=== PATIENT | female | born 1990 | race Caucasian/White ===

== ENCOUNTER 2018-03-26 13:51 | Inpatient (IN) | payer OTHER ==
[~2018-03-26] VITALS: Ht 160 cm; Wt 77.5 kg
--- NOTE | ~2018-03-26 | EKG ---
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
--- NOTE | ~2018-03-26 | HC ---
[facility] [place] [address] CONSULTATION Name: FLAKITA SMITH Huma Room #: 213-P ADM IN M.R.#: [id number] Admission: 03/26/18 Attend Phys: Westley Winter MD Discharge: Date of : 86 Report #: [id number] THIS REPORT FOR: //name// CC: MARRY physician/PCP Westley Winter DATE OF SERVICE: 03/26/2018 HISTORY OF PRESENT ILLNESS: This is a 27-year-old female patient who was evaluated by me multiple times today for stroke protocol. This patient was getting blood drawn and presented with pretty unusual symptoms. She indicates her speech was hesitant. She was having some shakiness. She was having some visual disturbances. Then she gave some history that some of the shakiness has started since yesterday. In fact, she has not been feeling well since yesterday. She has a history of anxiety. She also has a history of migraine. She indicates that she gets these migraine headache daily. Many times in the past, they have been associated with neurological deficit. The last time it was about 1 year ago. She did not seek any medical attention and she became better. She also indicates she was diagnosed with pituitary adenoma at one time. She is being followed by somebody at [facility]. She was given some Ativan and her symptom has improved and symptom was improving even before that. REVIEW OF SYSTEMS: She indicates she has a history of pretty significant anxiety. She also says she got daily migraine headache. A 14-point review of system was carried out and it was positive as described above. PAST MEDICAL HISTORY: Positive for neurological symptoms secondary to migraine which became better. FAMILY HISTORY: Negative for early age strokes. SOCIAL HISTORY: She drinks alcohol occasionally, but not on a regular basis. She just finished her periods. PHYSICAL EXAMINATION: Her examination was carried out multiple times. All of it are very non-anatomical evaluation. She has a hesitant speech, but when she started talking she is able to talk reasonably well especially when she is distracted. Cranial nerve examination when I carried out most of the time she can count the fingers okay, but sometime she will say four instead of five fingers. She said she cannot feel the position sense at all in the right arm or the left am, but on other occasion she switches arms. On the legs, she is able to feel better. Her reflexes are symmetrical. I cannot tell about the plantar. She does cerebellar signs okay, but slowly. This examination is very unusual. Her blood pressure is 131/75, respirations 14 and pulse is 78. LABORATORY DATA: Indicated normal white count. Her test is negative. [address] [address] CONSULTATION Name: FLAKITA SMITH Huma Room #: 213-P [facility] IN M.R.#: [id number] Admission: 03/26/18 Attend Phys: Westley Winter MD Discharge: Date of : 86 Report #: [id number] She had a CT scan of the head and I asked the Emergency Room PA to get a CT angio of the head and neck if is excluded and they did that. I reviewed that with the radiologist and that exam is normal. I had multiple discussions with the patient. I discussed with her that so far, there is no definite evidence for CVA. Problem we face is that these tests can miss the stroke and by the time we do more definite testing, it is too late to give TPA. The other problem is that she has very fluctuating exam, which does not follow any anatomical pattern, she has no reactive hypertension, she has migraine headache with focal neurological deficits in the past, she has pretty significant anxiety in the baseline. All of it makes it very difficult to make a decision. I gave her the option of going on TPA or not going on TPA. I gave her the option of TPA or no TPA and I discussed indication, potential complication and alternatives of giving the TPA or not giving the TPA. That was discussed with the patient multiple times. She decided that she does not want TPA and she will take her chances that way. We will follow that approach and we will get an MRI of the brain done stat in this patient. I am not sure about the etiology of the patient's symptoms. I considered the possibility of basilar artery thrombosis, but there is no evidence for that. CT perfusion and angiogram has its limitation, but this patient has no reactive hypertension and her symptoms does not fit into any anatomical location because it keeps variable and is very unusual to lose complete position sense in the arm without losing it in the leg and then being so variable exam. However, the stroke cannot be fully excluded. There are problems with falling either approach of giving TPA or not giving TPA. That has been fully discussed with the patient and she has been given both options whether to proceed with TPA or not. She has decided not to proceed with TPA. I still think she should be admitted and we will get an MRI done and until that shows anything we will just mainly observe her. Thank you very much for this referral. More than 70 minutes of time was spent taking care of this patient today and majority of that time was spent counseling the patient on TPA versus no TPA and her options and all the testing we did and coordinating her care by talking to other health daycare provider including Emergency Room physician PA, radiologist and Dr. Winter. By: [id number] [id number] MD carina Hilton
--- NOTE | ~2018-03-26 | 2DMMODE ---
[facility] [address] [place] [address] 2 D/M-MODE ECHOCARDIOGRAM Name: FLAKITA SMITH Room #: 213-P [facility] IN ..#: [id number] Admission: 03/26/18 Attend Phys: Westley Winter, Discharge: Date of : 86 Date of Service: 03/27/18 0906 Report #: [id number] THIS REPORT FOR: //name// APPROVED REPORT Study performed: 03/27/2018 07:53:26 EXAM: Comprehensive 2D, Doppler, and color-flow Echocardiogram Patient Location: Bedside Room #: 213 Status: routine BSA: 1.72 HR: 64 bpm BP: 95/54 mmHg Rhythm: NSR Other Information Study Quality: Adequate Indications Migraine Echo Enhancing Agent Indication: Rule out Shunt Agent(s) / Amount(s) Used: Agitated Saline 6 cc 2D Dimensions RVDd: 27.63 mm LVEF(%): 62.00 (>50%) IVSd: 7.94 (7-11mm) LVOT Diam: 19.22 (18-24mm) LVDd: 46.17 mm PWd: 8.69 (7-11mm) Ascending Ao: 24.30 (22-36mm) LVDs: 30.79 (25-40mm) Aortic Root: 26.42 mm Rodas's LVEF: 62.00 % Volumes Left Atrial Volume (Systole) Single Plane 4CH: 23.66 mL Single Plane 2CH: 27.91 mL LA ESV Index: 18.00 mL/m2 Aortic Valve AoV Peak Duke.: 0.96 m/s AO Peak Gr.: 3.70 mmHg LVOT Max P.87 mmHg LVOT Max V: 0.68 m/s RICKY Vmax: 2.06 cm2 [facility] [place] [address] 2 D/M-MODE ECHOCARDIOGRAM Name: FLAKITA SMITH Room #: 213-P [facility] IN .R.#: [id number] Admission: 03/26/18 Attend Phys: Westley Winter, Discharge: Date of : 86 Date of Service: 03/27/18 0906 Report #: [id number] Mitral Valve E/A Ratio: 1.8 MV Decel. Time: 203.30 ms MV E Max Duke.: 0.70 m/s MV A Duke.: 0.38 m/s MV PHT: 58.96 ms IVRT: 69.20 ms Pulmonary Valve PV Peak Dkue.: 0.73 m/s PV Peak Gr.: 2.13 mmHg Pulmonary Vein P Vein S: 0.53 m/s P Vein A: 0.27 m/s P Vein D: 0.59 m/s P Vein A Dur.: 143.0 msec P Vein S/D Ratio: 0.90 Tricuspid Valve TR Peak Duke.: 1.71 m/s RAP Estimate: 5.00 mmHg TR Peak Gr.: 12.00 mmHg PA Pressure: 17.00 mmHg Left Ventricle The left ventricle is normal size. There is normal LV segmental wall motion. There is normal left ventricular wall thickness. Left ventricular systolic function is normal. LVEF is 55%. The left ventricular diastolic function is normal. Right Ventricle The right ventricle is normal size. The right ventricular systolic function is normal. Atria The left atrium size is normal. No shunting noted with contrast bubble injection. The right atrium size is normal. Aortic Valve The aortic valve is normal in structure. No aortic regurgitation is present. There is no aortic valvular stenosis. Mitral Valve The mitral valve is normal in structure. No mitral regurgitation. Tricuspid Valve The tricuspid valve is normal in structure. Trace tricuspid [facility] [address] [place] [address] 2 D/M-MODE ECHOCARDIOGRAM Name: FLAKITA SMITH Room #: 213-P [facility] IN .R.#: [id number] Admission: 03/26/18 Attend Phys: Westley Winter, Discharge: Date of : 86 Date of Service: 03/27/18 0906 Report #: [id number] regurgitation. Right ventricular systolic pressure is normal. Pulmonic Valve The pulmonary valve is normal in structure. Trace pulmonic regurgitation. Great Vessels The aortic root is normal in size. The ascending aorta is normal in size. IVC is normal in size and collapses >50% with inspiration. Pericardium There is no pericardial effusion. <Conclusion> Left ventricular systolic function is normal. There is normal LV segmental wall motion. LVEF is 55%. Normal diastolic function No shunting noted with contrast bubble injection. The aortic valve is normal in structure. No aortic regurgitation or stenosis The mitral valve is normal in structure. No mitral regurgitation. Pulmonary artery pressure could not be reliably ascertained There is no pericardial effusion. <ELECTRONICALLY SIGNED> By: Floyd Fisher MD, FACC 03/27/18905 5 5 Floyd Fisher MD, FACC /INF
--- NOTE | ~2018-03-26 | EEG ---
[facility] [place] [place] [address] ELECTROENCEPHALOGRAM Name: FLAKITA SMITH Room #: 213-P [facility] IN M.R.#: [id number] Admission: 03/26/18 Attend Phys: Westley Winter MD Discharge: Date of : 86 Report #: [id number] THIS REPORT FOR: //name// CC: MARRY physician/PCP Westley Winter DATE OF SERVICE: 03/26/2018 This patient is being evaluated for shakiness and multiple unusual symptoms for which no cause is found. Background activity in this patient's EEG is about 11 Hz and 40 microvolt. This is a symmetrical activity. This patient became drowsy that is associated with bilateral slowing. Photic stimulation was unremarkable. Throughout the record, no active epileptiform activity was noticed. IMPRESSION: This patient's EEG is within normal limits. Thank you very much for this referral. By: 0725 0740 Chuy Meeks MD /julia
--- NOTE | ~2018-03-26 | PATH ---
[facility] [address] [place] [address] PATHOLOGY RPT PROCEDURE Name: FLAKITA SMITH Room #: 213-P [facility] IN ..#: [id number] Admission: 03/26/18 Date of : 86 Discharge: 03/31/18 Report #: [id number] Path Case #: [id number] Note [facility] Accession Number: [id number] TESTS RESULT FLAG UNITS REF RANGE LAB Clinician Provided Cytology Information No. of containers..01 Other (Miscellaneous) Source: CSF DIAGNOSIS: 02 CSF NEGATIVE FOR MALIGNANT CELLS. SCANT CELLULARITY. SCATTERED LYMPHOCYTES PRESENT. NO VIRAL INCLUSIONS IDENTIFIED. Signed out by: 02 Vickie You MD, Pathologist NPI- [id number] Performed by: Lee Shi, Infrastructure Technician ([facility]) Gross description: 01 2ML, COLORLESS, CLEAR /LCS FLAG LEGEND: L-Low Normal,H-High Normal,LL-Alert Low,HH-Alert High <-Panic Low,>-Panic High,A-Abnormal,AA-Critical Abnormal Performed at: [address] [place] [address] Vu Bruce MD, [address] [address] Vickie You MD, Performed at: [address], [place], [place] [id number] MD Vu Bruce MD Phone: [phone]
[2018-03-26 13:52] VITALS: BP 135/83
[2018-03-26 14:11] LABS: ABSOLUTE NEUTROPHILS 6.6 thou/uL (1.4-8.2); BASOPHILS 0.6 % (0.0-2.0); EOSINOPHILS 0.6 % (0.0-3.0); HEMATOCRIT 41.5 % (37.0-47.0); HEMOGLOBIN 14.1 gm/dL (12.0-15.0); LYMPHOCYTES 25.1 % (24.0-44.0); MCH 30.1 pg (26.0-34.0); MCV 88.6 fL (80.0-100.0); MONOCYTES 5.3 % (1.0-8.0); PLATELET COUNT 348 thou/uL (150-400); POLYS 68.4 % (36.0-66.0); RBC 4.68 mil/uL (4.20-5.00); RDW 12.3 % (10.5-14.5); WBC 9.6 thou/uL (4.0-11.0)
[2018-03-26 14:13] LABS: POC CA IONIZED 4.7 mg/dL (4.5-5.3); POC CREATININE 0.9 mg/dL (0.6-1.3); POC HEMOGLOBIN 13.9 g/dL (12.0-15.0)
[2018-03-26 14:18] LABS: ANION GAP 10 mmol/L (7-16); BUN 9 mg/dL (7-18); CALCIUM 9.2 mg/dL (8.5-10.1); CHLORIDE 102 mmol/L (98-107); CO2 26 mmol/L (21-32); GLUCOSE 116 mg/dL (74-106); POTASSIUM 3.4 mmol/L (3.5-5.1); SODIUM 138 mmol/L (136-145)
[2018-03-26 14:27] LABS: ALBUMIN 4.3 g/dL (3.4-5.0); SGOT 18 U/L (15-37); SGPT 29 U/L (30-65); TOTAL BILIRUBIN 0.3 mg/dL (<0.1-1.0); TOTAL PROTEIN 7.9 g/dL (6.4-8.2); TROPONIN-I < 0.04 ng/mL (<0.06)
[2018-03-26 14:30] LABS: INR 1.1; PROTIME 10.6 Seconds (9.3-11.4)
[2018-03-26 16:20] LABS: URINE BILIRUBIN NEGATIVE (Negative); URINE BLOOD 2+ (Negative); URINE CLARITY CLEAR; URINE COLOR YELLOW; URINE GLUCOSE-RANDOM* NEGATIVE (Negative); URINE KETONES NEGATIVE (Negative); URINE LEUKOCYTES-REFLEX NEGATIVE (Negative); URINE NITRITE-REFLEX NEGATIVE (Negative); URINE PROTEIN (DIPSTICK) NEGATIVE (Negative); URINE SPECIFIC GRAVITY <= 1.005 (1.005-1.035); URINE UROBILINOGEN 0.2 E.U./dl (0.2-1.0)
[2018-03-26 16:31] LABS: BACTERIA-REFLEX None Seen /HPF (None Seen); CASTS None Seen /LPF (None Seen); CRYSTALS None Seen /LPF (None Seen); SQUAMOUS 0-3 Few /LPF (0-3); URINE RBC 0-2 Rare /HPF (0-2); URINE WBC-REFLEX 0-5 Rare /HPF (0-5)
[2018-03-26 17:00] VITALS: BP 137/85
[2018-03-26] MEDS ORDERED: AMBIEN 5 MG TABL5 M1 PO (17:07)
[2018-03-26] MEDS ORDERED: ATIVAN1 MG PO (17:07)
[2018-03-26] MEDS ORDERED: TRAZODONE HCL100 MG PO (17:08)
[2018-03-26] MEDS ORDERED: PROZAC20 MG PO (17:09)
[2018-03-26 17:21] LABS: ALBUMIN 4.2 g/dL (3.4-5.0)
[2018-03-26 17:47] LABS: TSH 2.471 uIU/mL (0.358-3.740)
[2018-03-26 17:50] VITALS: BP 114/81
[2018-03-26 18:43] VITALS: BP 137/85
[2018-03-27] VITALS (9 sets, daily range): BP systolic 77–114; BP diastolic 35–60
[2018-03-27 03:19] LABS: HEMATOCRIT 36.7 % (37.0-47.0); HEMOGLOBIN 12.2 gm/dL (12.0-15.0); MCH 29.7 pg (26.0-34.0); MCHC 33.2 g/dL (28.0-37.0); MCV 89.4 fL (80.0-100.0); RBC 4.11 mil/uL (4.20-5.00); RDW 12.6 % (10.5-14.5); WBC 8.4 thou/uL (4.0-11.0)
[2018-03-27 03:31] LABS: CALCIUM 8.5 mg/dL (8.5-10.1); CREATININE 0.7 mg/dL (0.6-1.0); MAGNESIUM 2.2 mg/dL (1.8-2.4); POTASSIUM 3.9 mmol/L (3.5-5.1)
[2018-03-27 09:28] LABS: CHOLESTEROL 162 mg/dL (<200); HDL CHOLESTEROL 56 mg/dL (>40); LDL CHOLESTEROL 88 mg/dL (<100); TC:HDL 2.9 Ratio (Not establshd); TRIGLYCERIDE 93 mg/dL (<150); VLDL 19 mg/dL (<40)
[2018-03-28 04:18] LABS: HEMOGLOBIN 12.9 gm/dL (12.0-15.0); MCH 29.8 pg (26.0-34.0); MCHC 33.2 g/dL (28.0-37.0); MCV 89.9 fL (80.0-100.0); RBC 4.34 mil/uL (4.20-5.00); RDW 12.3 % (10.5-14.5); WBC 7.5 thou/uL (4.0-11.0)
[2018-03-28 04:29] LABS: CALCIUM 8.7 mg/dL (8.5-10.1); CREATININE 0.7 mg/dL (0.6-1.0)
[2018-03-28 04:45] VITALS: BP 105/60
[2018-03-28 07:25] VITALS: BP 111/63
[2018-03-28 11:40] VITALS: BP 114/66
[2018-03-28 16:05] VITALS: BP 114/66
[2018-03-28 16:30] VITALS: BP 114/66
[2018-03-28 20:00] VITALS: BP 122/68
[2018-03-29 04:02] LABS: HEMATOCRIT 40.7 % (37.0-47.0); HEMOGLOBIN 13.5 gm/dL (12.0-15.0); MCH 29.6 pg (26.0-34.0); MCHC 33.3 g/dL (28.0-37.0); RBC 4.57 mil/uL (4.20-5.00); RDW 12.1 % (10.5-14.5); WBC 11.1 thou/uL (4.0-11.0)
[2018-03-29 04:13] LABS: CALCIUM 9.3 mg/dL (8.5-10.1); CREATININE 0.6 mg/dL (0.6-1.0); MAGNESIUM 1.9 mg/dL (1.8-2.4); POTASSIUM 3.9 mmol/L (3.5-5.1)
[2018-03-29 04:30] VITALS: BP 105/63
[2018-03-29 08:00] VITALS: BP 110/74
[2018-03-29 12:00] VITALS: BP 98/61
[2018-03-29 20:00] VITALS: BP 111/74
[2018-03-30 00:38] VITALS: BP 113/64
[2018-03-30 04:14] LABS: HEMATOCRIT 39.7 % (37.0-47.0); HEMOGLOBIN 13.4 gm/dL (12.0-15.0); MCHC 33.6 g/dL (28.0-37.0); MCV 89.3 fL (80.0-100.0); RBC 4.45 mil/uL (4.20-5.00); RDW 12.4 % (10.5-14.5); WBC 10.1 thou/uL (4.0-11.0)
[2018-03-30 04:18] LABS: CALCIUM 8.6 mg/dL (8.5-10.1); CREATININE 0.7 mg/dL (0.6-1.0); MAGNESIUM 2.1 mg/dL (1.8-2.4); POTASSIUM 4.1 mmol/L (3.5-5.1)
[2018-03-30 08:00] VITALS: BP 110/69
[2018-03-30 12:00] VITALS: BP 98/63
[2018-03-30 16:00] VITALS: BP 95/55
[2018-03-30 19:58] VITALS: BP 102/42
[2018-03-30 20:43] VITALS: BP 92/47
[2018-03-31 04:57] VITALS: BP 109/65
[2018-03-31 07:32] VITALS: BP 121/75
[2018-03-31 10:30] VITALS: BP 114/66
[2018-03-31 11:20] LABS: INR 1.1; PROTIME 10.8 Seconds (9.3-11.4)
[2018-03-31 12:48] VITALS: BP 108/66
[2018-03-31 13:11] LABS: CSF GLUCOSE 55 mg/dL (40-70); CSF PROTEIN 41 mg/dL (15-45)
[2018-03-31 13:18] LABS: CSF CLARITY CLEAR; CSF COLOR COLORLESS; VOLUME 12 ml
[2018-03-31 13:25] LABS: CSF RBC 0 /mm3
[2018-03-31 13:26] LABS: CSF WBC 1 /mm3 (0-10)
[2018-03-31 14:59] VITALS: BP 114/66
[2018-03-31 16:00] VITALS: BP 114/66
[2018-03-31] MEDS ORDERED: CYCLOBENZAPRINE5 MG PO (16:47)
[2018-03-31 19:06] LABS: SERUM ALBUMIN 3.9 g/dL (3.5-5.5)
[2018-04-02 14:12] LABS: CSF IgG 1.7 mg/dL (0.0-8.6)
== END 2018-03-31 16:00 | disposition home or self-care (01) | DRG 57 ==
LOC: ER 13:51 → EROBS 16:43 → 2N 16:43 → ENTRNSPT 03-31 17:46
PROVIDERS: Internal Medicine; Physician Assistant; Psychiatry & Neurology Neurology; Psychiatry & Neurology Neuromuscular Medicine
PROC: 009U3ZX Drainage of Spinal Canal, Percutaneous Approach, Diagnostic (ICD-10-PCS; principal; 2018-03-31)
PROC: B01B1ZZ Fluoroscopy of Spinal Cord using Low Osmolar Contrast (ICD-10-PCS; principal; 2018-03-31)
DX: G81.91 Hemiplegia, unspecified affecting right dominant side (principal); G43.409 Hemiplegic migraine, not intractable, without status migrainosus; F41.9 Anxiety disorder, unspecified; F32.9 Major depressive disorder, single episode, unspecified; F43.10 Post-traumatic stress disorder, unspecified; R26.9 Unspecified abnormalities of gait and mobility; Z79.899 Other long term (current) drug therapy; Z88.0 Allergy status to penicillin; Z88.8 Allergy status to other drugs, medicaments and biological substances
CPT/HCPCS: 10081

== ENCOUNTER 2019-01-18 21:20 | Emergency (ER) | payer OTHER ==
[~2019-01-18] VITALS: Ht 154.9 cm; Wt 60.8 kg
[~2019-01-18 21:20] MED LIST: AMBIEN 5 MG TABL5 M1 PO; ATIVAN1 MG PO; CYCLOBENZAPRINE5 MG PO; PROZAC20 MG PO; TRAZODONE HCL100 MG PO
[2019-01-18] MEDS ORDERED: FAMOTIDINE 20 M20 MG PO (23:39)
[2019-01-19 00:06] VITALS: BP 113/69
== END 2019-01-18 23:55 | disposition home or self-care (01) ==
LOC: ER 21:20
DX: L50.9 Urticaria, unspecified (principal); T78.40XA Allergy, unspecified, initial encounter; F41.0 Panic disorder [episodic paroxysmal anxiety]; F32.9 Major depressive disorder, single episode, unspecified; F17.210 Nicotine dependence, cigarettes, uncomplicated; Z88.5 Allergy status to narcotic agent; Z88.0 Allergy status to penicillin; Z88.1 Allergy status to other antibiotic agents; X58.XXXA Exposure to other specified factors, initial encounter

== ENCOUNTER 2019-03-18 18:00 | Emergency (ER) | payer OTHER ==
[~2019-03-18] VITALS: Ht 157.5 cm; Wt 61.2 kg
[~2019-03-18 18:00] MED LIST changes: +FAMOTIDINE 20 M20 MG PO
[2019-03-18] MEDS ORDERED: PREDNISONE 20 M20 MG PO (18:45)
[2019-03-18] MEDS ORDERED: HYDROXYZINE HCL25 M2 PO (18:45)
[2019-03-18 19:05] VITALS: BP 119/77
== END 2019-03-18 19:05 | disposition home or self-care (01) ==
LOC: ER 18:00
DX: R21 Rash and other nonspecific skin eruption (principal); F41.9 Anxiety disorder, unspecified; F32.9 Major depressive disorder, single episode, unspecified; G43.909 Migraine, unspecified, not intractable, without status migrainosus; Z88.0 Allergy status to penicillin; Z88.5 Allergy status to narcotic agent

== ENCOUNTER 2019-05-03 11:19 | Emergency (ER) | payer OTHER ==
[~2019-05-03] VITALS: Ht 154.9 cm; Wt 54.4 kg
[~2019-05-03 11:19] MED LIST changes: +HYDROXYZINE HCL25 M2 PO; +PREDNISONE 20 M20 MG PO
[2019-05-03 11:50] LABS: ABSOLUTE NEUTROPHILS 4.1 thou/uL (1.4-8.2); BASOPHILS 0.6 % (0.0-2.0); EOSINOPHILS 1.1 % (0.0-3.0); HEMOGLOBIN 14.9 gm/dL (12.0-15.0); LYMPHOCYTES 31.6 % (24.0-44.0); MCH 30.3 pg (26.0-34.0); MCHC 33.8 g/dL (28.0-37.0); MCV 89.6 fL (80.0-100.0); MONOCYTES 6.8 % (1.0-8.0); PLATELET COUNT 342 thou/uL (150-400); POLYS 59.9 % (36.0-66.0); RDW 12.7 % (10.5-14.5); WBC 6.8 thou/uL (4.0-11.0)
[2019-05-03 11:57] LABS: CALCIUM 9.2 mg/dL (8.5-10.1); CREATININE 0.9 mg/dL (0.6-1.0); POTASSIUM 3.6 mmol/L (3.5-5.1)
[2019-05-03 12:03] LABS: TOTAL BILIRUBIN 0.6 mg/dL (<0.1-1.0); TOTAL PROTEIN 7.6 g/dL (6.4-8.2)
[2019-05-03 12:49] VITALS: BP 118/73
[2019-05-03 13:02] LABS: URINE BILIRUBIN NEGATIVE (Negative); URINE BLOOD NEGATIVE (Negative); URINE CLARITY SL CLOUDY; URINE COLOR YELLOW; URINE GLUCOSE-RANDOM* NEGATIVE (Negative); URINE KETONES NEGATIVE (Negative); URINE NITRITE-REFLEX NEGATIVE (Negative); URINE PROTEIN (DIPSTICK) NEGATIVE (Negative); URINE SPECIFIC GRAVITY 1.025 (1.005-1.035); URINE UROBILINOGEN 0.2 E.U./dl (0.2-1.0)
[2019-05-03 13:03] LABS: URINE LEUKOCYTES-REFLEX 2+ (Negative)
[2019-05-03 13:17] LABS: CASTS None Seen /LPF (None Seen); CRYSTALS None Seen /LPF (None Seen); SQUAMOUS >10 Many /LPF (0-3)
[2019-05-03 13:18] LABS: BACTERIA-REFLEX 1-9 Few /HPF (None Seen); CALCIUM OXALATE 0-3 Few /LPF (None Seen); MUCUS 0-3 Light strn/LPF (None Seen); URINE RBC 0-2 Rare /HPF (0-2); URINE WBC-REFLEX >25 Many /HPF (0-5)
--- NOTE | 2019-05-03 19:54 | EKG ---
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1990 Requested By: Abdirahman Palomino Order Number: [id number] MD: Silvino Pollack Measurements Intervals [place] Rate: 67 P: 0 MO: 174 QRS: 2 QRSD: 95 T: 1 QT: 423 QTc: 447 Interpretive Statements Sinus rhythm Inferior infarct, old Compared to ECG 03/26/2018 14:19:34 Myocardial infarct finding now present Electronically Signed On 05-03-2019 19:54:44 CDT by Silvino Pollack [email or web address] ��������������������������������������������� <ELECTRONICALLY SIGNED> ���������������������������������������� By: Silvino Pollack MD ��������������������������������������������� 05/03/19 1956 D: 07/1138 113 Silvino Pollack MD /KAYLI
== END 2019-05-03 13:35 | disposition home or self-care (01) ==
LOC: ER 11:19
PROVIDERS: Emergency Medicine
DX: R42 Dizziness and giddiness (principal); F41.9 Anxiety disorder, unspecified; F32.9 Major depressive disorder, single episode, unspecified; Z88.0 Allergy status to penicillin; Z88.5 Allergy status to narcotic agent; Z88.8 Allergy status to other drugs, medicaments and biological substances

== ENCOUNTER 2019-06-19 01:24 | Emergency (ER) | payer OTHER ==
[~2019-06-19] VITALS: Ht 157.5 cm; Wt 59.0 kg
[2019-06-19 02:10] LABS: URINE BILIRUBIN NEGATIVE (Negative); URINE BLOOD 2+ (Negative); URINE CLARITY SL CLOUDY; URINE COLOR YELLOW; URINE GLUCOSE-RANDOM* NEGATIVE (Negative); URINE KETONES 2+ (Negative); URINE LEUKOCYTES-REFLEX TRACE (Negative); URINE NITRITE-REFLEX NEGATIVE (Negative); URINE PROTEIN (DIPSTICK) NEGATIVE (Negative); URINE SPECIFIC GRAVITY 1.025 (1.005-1.035); URINE UROBILINOGEN 0.2 E.U./dl (0.2-1.0)
[2019-06-19 02:45] LABS: BACTERIA-REFLEX 1-9 Few /HPF (None Seen); CASTS None Seen /LPF (None Seen); CRYSTALS None Seen /LPF (None Seen); MUCUS 0-3 Light strn/LPF (None Seen); SQUAMOUS 0-3 Few /LPF (0-3); URINE RBC 3-10 Few /HPF (0-2); URINE WBC-REFLEX 6-15 Few /HPF (0-5); WBC CLUMPS Occasional (None Seen)
[2019-06-19 03:16] LABS: ABSOLUTE NEUTROPHILS 11.6 thou/uL (1.4-8.2); BASOPHILS 0.3 % (0.0-2.0); EOSINOPHILS 0.2 % (0.0-3.0); HEMATOCRIT 41.6 % (37.0-47.0); HEMOGLOBIN 13.7 gm/dL (12.0-15.0); LYMPHOCYTES 9.6 % (24.0-44.0); MCH 29.6 pg (26.0-34.0); MCHC 32.9 g/dL (28.0-37.0); MCV 89.8 fL (80.0-100.0); MONOCYTES 3.9 % (1.0-8.0); PLATELET COUNT 286 thou/uL (150-400); RBC 4.63 mil/uL (4.20-5.00); RDW 12.5 % (10.5-14.5); WBC 13.4 thou/uL (4.0-11.0)
[2019-06-19 03:17] LABS: ANION GAP 8 mmol/L (7-16); BUN 8 mg/dL (7-18); CALCIUM 8.9 mg/dL (8.5-10.1); CHLORIDE 102 mmol/L (98-107); CO2 27 mmol/L (21-32); CREATININE 0.9 mg/dL (0.6-1.0); GLUCOSE 114 mg/dL (74-106); POTASSIUM 3.8 mmol/L (3.5-5.1); SODIUM 137 mmol/L (136-145)
[2019-06-19 03:23] LABS: ALBUMIN 3.7 g/dL (3.4-5.0); DIRECT BILIRUBIN < 0.1 mg/dL (<0.1-0.3); LIPASE 140 U/L (73-393); SGOT 20 U/L (15-37); SGPT 22 U/L (30-65); TOTAL BILIRUBIN 0.4 mg/dL (<0.1-1.0); TOTAL PROTEIN 7.2 g/dL (6.4-8.2)
[2019-06-19] MEDS ORDERED: ZOFRAN ODT4 MG PO (04:18)
[2019-06-19] MEDS ORDERED: MACROBID 100 M100 M1 PO (04:31)
[2019-06-19 04:45] VITALS: BP 146/93
== END 2019-06-19 04:40 | disposition home or self-care (01) ==
LOC: ER 01:24
PROVIDERS: Emergency Medicine
DX: G43.409 Hemiplegic migraine, not intractable, without status migrainosus (principal); J02.9 Acute pharyngitis, unspecified; N39.0 Urinary tract infection, site not specified; R11.2 Nausea with vomiting, unspecified; F41.0 Panic disorder [episodic paroxysmal anxiety]; F32.9 Major depressive disorder, single episode, unspecified; Z88.8 Allergy status to other drugs, medicaments and biological substances; Z88.1 Allergy status to other antibiotic agents; Z88.0 Allergy status to penicillin; Z86.73 Personal history of transient ischemic attack (TIA), and cerebral infarction without residual deficits

== ENCOUNTER 2021-08-18 23:15 | Emergency (ER) | payer BC ==
[~2021-08-18] VITALS: Ht 160 cm; Wt 63.5 kg
[~2021-08-18 23:15] MED LIST changes: +MACROBID 100 M100 M1 PO; +ZOFRAN ODT4 MG PO
[2021-08-19 00:13] LABS: URINE BILIRUBIN NEGATIVE (Negative); URINE BLOOD NEGATIVE (Negative); URINE CLARITY CLEAR; URINE COLOR YELLOW; URINE GLUCOSE-RANDOM* NEGATIVE (Negative); URINE KETONES NEGATIVE (Negative); URINE LEUKOCYTES-REFLEX TRACE (Negative); URINE NITRITE-REFLEX NEGATIVE (Negative); URINE PROTEIN (DIPSTICK) NEGATIVE (Negative); URINE SPECIFIC GRAVITY <= 1.005 (1.005-1.035); URINE UROBILINOGEN 0.2 E.U./dl (0.2-1.0)
[2021-08-19 00:36] LABS: ABSOLUTE NEUTROPHILS 5.1 thou/uL (1.4-8.2); BASOPHILS 0.7 % (0.0-2.0); HEMATOCRIT 37.3 % (37.0-47.0); LYMPHOCYTES 36.3 % (24.0-44.0); MCH 27.2 pg (26.0-34.0); MCHC 32.2 g/dL (28.0-37.0); MCV 84.4 fL (80.0-100.0); MONOCYTES 7.2 % (1.0-8.0); PLATELET COUNT 347 thou/uL (150-400); POLYS 53.8 % (36.0-66.0); RBC 4.42 mil/uL (4.20-5.00); RDW 14.6 % (10.5-14.5); WBC 9.5 thou/uL (4.0-11.0)
[2021-08-19 00:43] LABS: CALCIUM 9.2 mg/dL (8.5-10.1); CREATININE 0.9 mg/dL (0.6-1.0); POTASSIUM 3.6 mmol/L (3.5-5.1)
[2021-08-19 00:50] LABS: ALBUMIN 3.5 g/dL (3.4-5.0); TOTAL BILIRUBIN 0.1 mg/dL (0.2-1.0); TOTAL PROTEIN 7.1 g/dL (6.4-8.2)
[2021-08-19] MEDS ORDERED: IBUPROFEN 600600 M1 PO (02:11)
[2021-08-19] MEDS ORDERED: ZOFRAN ODT4 MG PO (02:11)
[2021-08-19] MEDS ORDERED: PERCOCET PO (02:11)
[2021-08-19 02:13] VITALS: BP 90/57
== END 2021-08-19 02:15 | disposition home or self-care (01) ==
LOC: ER 23:15
PROVIDERS: Emergency Medicine
DX: N83.201 Unspecified ovarian cyst, right side (principal); R10.31 Right lower quadrant pain; F41.9 Anxiety disorder, unspecified; F32.9 Major depressive disorder, single episode, unspecified; G43.409 Hemiplegic migraine, not intractable, without status migrainosus; Z86.16 Personal history of COVID-19; Z79.891 Long term (current) use of opiate analgesic; Z79.899 Other long term (current) drug therapy; Z88.8 Allergy status to other drugs, medicaments and biological substances; Z88.6 Allergy status to analgesic agent; Z88.5 Allergy status to narcotic agent; Z88.0 Allergy status to penicillin

== ENCOUNTER 2021-10-30 18:05 | Emergency (ER) | payer BC ==
[~2021-10-30] VITALS: Ht 160 cm; Wt 63.5 kg
[~2021-10-30 18:05] MED LIST changes: +IBUPROFEN 600600 M1 PO; +PERCOCET PO
[2021-10-30 18:11] VITALS: BP 144/88
[2021-10-30] MEDS ORDERED: TOBRADEX EYE DRO5 ML EA. EYE (18:27)
[2021-10-30] MEDS ORDERED: PREDNISONE 20 M20 MG PO (18:27)
== END 2021-10-30 18:40 | disposition home or self-care (01) ==
LOC: ER 18:05
DX: H10.13 Acute atopic conjunctivitis, bilateral (principal); F41.9 Anxiety disorder, unspecified; F32.9 Major depressive disorder, single episode, unspecified; Z79.899 Other long term (current) drug therapy; Z88.0 Allergy status to penicillin; Z88.5 Allergy status to narcotic agent; Z88.6 Allergy status to analgesic agent

== ENCOUNTER 2021-11-07 19:37 | Emergency (ER) | payer BC ==
[~2021-11-07] VITALS: Ht 160 cm; Wt 68.0 kg
[~2021-11-07 19:37] MED LIST changes: +TOBRADEX EYE DRO5 ML EA. EYE
[2021-11-07 21:46] LABS: URINE BILIRUBIN NEGATIVE (Negative); URINE BLOOD NEGATIVE (Negative); URINE CLARITY CLOUDY; URINE COLOR YELLOW; URINE GLUCOSE-RANDOM* NEGATIVE (Negative); URINE KETONES NEGATIVE (Negative); URINE LEUKOCYTES-REFLEX NEGATIVE (Negative); URINE NITRITE-REFLEX NEGATIVE (Negative); URINE PROTEIN (DIPSTICK) NEGATIVE (Negative); URINE UROBILINOGEN 0.2 E.U./dl (0.2-1.0)
[2021-11-07 22:14] LABS: CREATININE 0.7 mg/dL (0.6-1.0); POTASSIUM 3.8 mmol/L (3.5-5.1)
[2021-11-07 22:15] LABS: ABSOLUTE NEUTROPHILS 6.1 thou/uL (1.4-8.2); BASOPHILS 0.6 % (0.0-2.0); EOSINOPHILS 1.3 % (0.0-3.0); HEMATOCRIT 38.7 % (37.0-47.0); HEMOGLOBIN 12.6 gm/dL (12.0-15.0); LYMPHOCYTES 20.8 % (24.0-44.0); MCH 27.7 pg (26.0-34.0); MCHC 32.5 g/dL (28.0-37.0); MCV 85.1 fL (80.0-100.0); MONOCYTES 9.3 % (1.0-8.0); PLATELET COUNT 314 thou/uL (150-400); RBC 4.54 mil/uL (4.20-5.00); RDW 17.3 % (10.5-14.5)
[2021-11-07 22:40] VITALS: BP 130/79
--- NOTE | 2021-11-08 07:49 | EKG ---
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1990 Requested By: Joseph Villar Order Number: [id number] MD: Floyd Fisher Measurements Intervals [place] Rate: 71 P: 64 MA: 181 QRS: 5 QRSD: 90 T: 0 QT: 381 QTc: 414 Interpretive Statements Sinus rhythm Nonspecific T wave abnormality Compared to ECG 05/03/2019 11:39:30 No significant change was found Electronically Signed On 11-08-2021 7:48:58 [employer] JOURNALIST by Floyd Fisher [email or web address] <ELECTRONICALLY SIGNED> By: Floyd Fisher MD, [facility] 11/08/21 0748 2125 24 Floyd Fisher MD, FACC /EPI
== END 2021-11-07 22:49 | disposition home or self-care (01) ==
LOC: ER 19:37
PROVIDERS: Student in an Organized Health Care Education/Training Program
DX: U07.1 COVID-19 (principal); R42 Dizziness and giddiness; F41.9 Anxiety disorder, unspecified; F32.9 Major depressive disorder, single episode, unspecified; Z86.16 Personal history of COVID-19; G43.909 Migraine, unspecified, not intractable, without status migrainosus; Z79.899 Other long term (current) drug therapy; Z79.891 Long term (current) use of opiate analgesic; Z79.1 Long term (current) use of non-steroidal anti-inflammatories (NSAID); Z88.0 Allergy status to penicillin; Z88.8 Allergy status to other drugs, medicaments and biological substances; Z88.6 Allergy status to analgesic agent